=== PATIENT | male | born 1995 | race Caucasian/White ===

== ENCOUNTER → 2022-03-01 | Emergency (ER) | payer MEDICAID ==
[~2022-03-01] VITALS: Ht 172.7 cm; Wt 56.8 kg
[2022-03-01 23:36] VITALS: BP 133/70
== END | disposition left against medical advice (07) ==
LOC: ER 21:55
DX: R10.9 Unspecified abdominal pain (principal); Z53.21 Procedure and treatment not carried out due to patient leaving prior to being seen by health care provider